=== PATIENT | female | born 1950 | race Hispanic/Latino ===

== ENCOUNTER 2017-03-02 12:04 | Observation (INO) | payer BC ==
[2017-03-02 12:11] VITALS: BMI 29.7
[2017-03-02] MEDS ORDERED: Sodium Chloride 0.9% 1,000 ML IV SCH ×2 (13:00→20:30)
--- NOTE | 2017-03-02 13:07 | ED PDOC ---
Arrival/HPI - General Chief Complaint: Dizziness/Lightheaded Time Seen by Provider: 03/02/17 12:05 Historian: Patient, Other (Significant other) - History of Present Illness Narrative History of Present Illness (Text): 03/02/17 Patient is a 66 year old female whose past medical history includes pancreatic cancer with metastases to the liver, on chemo since July 2016, last chemo last , and neuropathy who presents to the emergency department with possible syncopal episode this morning. Patient states she was at a mass where it was very wine maker the room. Patient's significant other states they had been sitting for about 10 minutes and were getting ready to leave but when he asked if she was ready to go, she said she "could not get up." Patient states she felt generally weak, sweaty, and clammy. Significant other states she did not look well and believes she may have "passed out completely for a few seconds", after which he called the ambulance. He states she did not fall or hit her head and was able to lie down with some assistance. Currently patient states she is feeling better and is able to provide the history without difficulty. Denies headache, neck pain, or back pain. Patient explains she switched chemo a few weeks ago and is being treated in [place], [place], getting scans every 2 months, with last scan in December. She explains she has not been feeling well since the new chemotherapy. This week she reports she has felt tired. Patient reports she has abdominal pain that is usually intermittent but has recently become more constant. Patient states she has not been sick the last few days. She reports normal bowel movements. No diarrhea. Today she states she ate normally and had her usual enzyme before eating. She states her pain was not more severe than her usual pain. Patient reports she did feel wobbly today before the episode. Denies shortness of breath or chest pain. PMD: Dr. Rawls Oncologist: Dr. Erika Page ([phone]) Time/Duration: Prior to Arrival Symptom Onset: Sudden Symptom Course: Resolved Activities at Onset: Rest Past Medical History - Provider Review Nursing Documentation Reviewed: Yes - Infectious Disease Hx of Infectious Diseases: None - Cardiac Hx Cardiac Disorders: Yes Hx Hypertension: Yes - Pulmonary Hx Respiratory Disorders: Yes Hx Asthma: Yes Hx Lung Cancer: Yes - Neurological Hx Neurological Disorder: No - HEENT Hx HEENT Disorder: No - Renal Hx Renal Disorder: No - Endocrine/Metabolic Hx Endocrine Disorders: No - Hematological/Oncological Hx Blood Disorders: Yes Hx Cancer: Yes (lung, pancreas, liver) Hx Chemotherapy: Yes - Integumentary Hx Dermatological Disorder: No - Musculoskeletal/Rheumatological Hx Musculoskeletal Disorders: No - Gastrointestinal Hx Gastrointestinal Disorders: No - Genitourinary/Gynecological Hx Genitourinary Disorders: No - Psychiatric Hx Psychophysiologic Disorder: No Hx Anxiety: No Hx Bipolar Disorder: No Hx Depression: No Hx Emotional Abuse: No Hx Hallucinations: No Hx Panic Disorder: No Hx Post Traumatic Stress Disorder: No Hx Psychosis: No Hx Physical Abuse: No Hx Schizophrenia: No Hx Sexual Abuse: No Hx Substance Use: No - Anesthesia Hx Anesthesia: No Hx Anesthesia Reactions: No Hx Malignant Hyperthermia: No Family/Social History - Physician Review Nursing Documentation Reviewed: Yes Family/Social History: Unknown Family HX Smoking Status: Never Smoked Hx Alcohol Use: No Hx Substance Use: No Allergies/Home Meds Allergies/Adverse Reactions: Allergies adhesive Allergy (Verified 03/02/17 12:11) RASH Home Medications: Home Meds Medication Instructions Recorded Confirmed Lipase/Protease/Amylase [Benji De Souza 1 cap PO BID 03/02/17 03/02/17 25,000 Units Capsule] Lipase/Protease/Amylase [Benji De Souza 2 cap PO WM 03/02/17 03/02/17 25,000 Units Capsule] Omeprazole Magnesium [Prilosec Otc] 40 mg PO DAILY 03/02/17 03/02/17 Review of Systems - Review of Systems Constitutional: Fatigue Eyes: absent: Vision Changes ENT: absent: Hearing Changes Respiratory: absent: SOB, Cough Cardiovascular: Syncope. absent: Chest Pain Gastrointestinal: Abdominal Pain. absent: Diarrhea, Nausea, Vomiting Musculoskeletal: absent: Back Pain, Neck Pain Skin: absent: Rash Neurological: absent: Headache, Focal Weakness Endocrine: Diaphoresis Psychiatric: absent: Depression Physical Exam - Physical Exam Narrative Physical Exam (Text): Head: Atraumatic. Normocephalic. Eyes: PERRL. EOMI. Conjunctivae are not pale. ENT: Mucous membranes are moist and intact. Oropharynx is clear and symmetric. Neck: Supple. Full ROM. No JVD. No lymphadenopathy. Cardiovascular: Regular rate. Regular rhythm. Systolic murmur. Distal pulses intact. Pulmonary/Chest: No evidence of respiratory distress. Clear to auscultation bilaterally. No wheezing, rales or rhonchi. Abdominal: Distended, mild diffuse tenderness more localized to right quadrants. Back: No CVA tenderness. No midline tenderness. Extremities: No edema. No cyanosis. No clubbing. Full range of motion in all extremities. No calf tenderness. Skin: Skin is warm and dry. No petechiae. No purpura. Neurological: Alert, awake, and oriented to person, place, time, and situation. Normal speech. Fine resting tremor. No facial droop. No pronator drift. No focal weakness. No meningeal signs. Psychiatric: Good eye contact. Normal interaction, affect, and behavior. 03/02/17 15:28 Vital Signs Reviewed: Yes Vital Signs Temp Pulse Resp BP Pulse Ox 03/02/17 17:43 93 H 16 146/83 100 03/02/17 14:52 92 H 16 142/81 100 03/02/17 12:20 98.2 F 100 H 16 134/86 98 Temperature: Afebrile Blood Pressure: Normal Pulse: Regular Respiratory Rate: Normal Appearance: Positive for: Non-Toxic Mental Status: Positive for: Alert and Oriented X 3 Medical Decision Making ED Course and Treatment: Differential Diagnosis included but are not limited to: Plan: Will obtain CT's of the Head and Abdomen/Pelvis and check labs. Progress Notes: Patient evaluated by Dr. Rawls in the ER who accepts for admission Patient evaluated by Dr. Chris Pfeiffer EXAM: CT Abdomen and Pelvis With Intravenous Contrast FINDINGS: Limitations: Prominent motion artifact is present. Lower thorax: Significant respiratory blurring in the lungs. No consolidative disease is present. Too numerous to count pulmonary metastatic nodular lesions are present ranging from 3 mm to 3 cm. Moderate right hilar adenopathy measuring 3 cm. Central line tip is seen within the superior aspect of the right atrium. ABDOMEN: Liver: Extensive low density masses throughout the liver. Largest in the left lobe measures approximately 3 x 5 cm. The largest in the right lobe measures approximately 5 x 7 cm. Gallbladder and bile ducts: No calcified stones. No ductal dilation. Pancreas: Significant complex cystic mass with some thin mural calcifications within septations in the head and uncinate region of the pancreas. There is subsequent significant dilatation of the main pancreatic duct in the body and tail of the pancreas measuring up to 10 mm. Significant pancreatic parenchymal atrophy is noted. A portion of this surrounds and obscures the fat planes of the proximal superior mesenteric artery. Kidneys and ureters: The kidneys are normal in size and density. Small renal cortical cysts are present. No stones identified. No mass. Stomach and bowel: No mass. No obstruction. No mural thickening. No acute diverticular disease. Appendix: No findings to suggest acute appendicitis. PELVIS: Reproductive: Uterus and adnexal structures appear normal for the patient's age. ABDOMEN and PELVIS: Intraperitoneal space: No free air. No significant fluid collection. Lymph nodes: Mildly enlarged interaortocaval retroperitoneal adenopathy, image 314 series 6 measuring 13 mm. IMPRESSION: Cystic pancreatic neoplasm predominantly in the head and uncinate region of the pancreas obscuring the fat plane around approximately 75% of the proximal SMA. Associated biliary end pancreatic duct obstruction. Diffuse hepatic and pulmonary metastasis. Evidence of right hilar and some retroperitoneal and periceliac adenopathy. Dictated and Authenticated by: Farhat Levi MD 03/02/2017 6:39 PM Eastern Time ([place] & [place]) - Lab Interpretations Lab Results: 03/02/17 13:30 03/02/17 13:30 Lab Results 03/02/17 13:30: Sodium 133, Potassium 4.3, Chloride 99, Carbon Dioxide 31, Anion Gap 7 L, BUN 13, Creatinine 0.6, Est GFR ( Amer) > 60, Est GFR (Non -Af Amer) > 60, Random Glucose 176 H, Calcium 10.7 H, Magnesium 2.6 H, Total Bilirubin 1.2, AST 178 H, ALT 510 H, Alkaline Phosphatase 379 H, Lactate Dehydrogenase 975 H, Total Creatine Kinase 39, Troponin I 0.02 D, NT-Pro-B Natriuret Pep 246, Total Protein 7.3, Albumin 3.7, Globulin 3.5, Albumin/ Globulin Ratio 1.1, Amylase 53, Lipase < 10 L 03/02/17 13:30: PT 13.1 H, INR 1.21 H, APTT 24.1 03/02/17 13:30: WBC 10.2, RBC 3.85, Hgb 11.0 L, Hct 33.8 L, MCV 87.8, MCH 28.6, MCHC 32.5, RDW 15.0 H, Plt Count 119 L, MPV 10.3, Gran % 84.9 H, Lymph % (Auto) 7.3 L, Cedar % (Auto) 3.9, Eos % (Auto) 0.3 L, Baso % (Auto) 3.6 H, Gran # 8.68 H , Lymph # 0.8 L, Cedar # 0.4, Eos # 0.0, Baso # 0.37 - RAD Interpretation Radiology Orders: 03/02/17 12:49 CHEST PORTABLE [RAD] Stat 03/02/17 12:50 HEAD W/O CONTRAST [CT] Stat - Medication Orders Current Medication Orders: Home Med (Home Med) 2 unit PO WM DENISA Sodium Chloride (Sodium Chloride 0.9%) 1,000 mls @ 60 mls/hr IV .[id number] DENISA Last Admin: 03/02/17 20:45 Dose: 60 mls/hr Discontinued Medications Sodium Chloride (Sodium Chloride 0.9%) 1,000 mls @ 100 mls/hr IV .Q10H DENISA Last Admin: 03/02/17 14:05 Dose: 100 mls/hr Iohexol (Omnipaque 240 (50 Ml)) Confirm Administered Dose 50 ml .ROUTE .STK-MED ONE Stop: 03/02/17 14:08 Iohexol (Omnipaque 350 100 Ml) Confirm Administered Dose 350 mg .ROUTE .STK-MED ONE Stop: 03/02/17 15:37 Ondansetron HCl (Zofran Inj) 4 mg IVP ONCE ONE Stop: 03/02/17 17:55 Last Admin: 03/02/17 18:13 Dose: 4 mg - Burtonibe Statement The provider has reviewed the documentation as recorded by the Nain Marie Provider Scribe Attestation: All medical record entries made by the Nain were at my direction and personally dictated by me. I have reviewed the chart and agree that the record accurately reflects my personal performance of the history, physical exam, medical decision making, and the department course for this patient. I have also personally directed, reviewed, and agree with the discharge instructions and disposition. Disposition/Present on Arrival - Present on Arrival History of DVT/PE: No History of Uncontrolled Diabetes: No Urinary Catheter: No History of Decub. Ulcer: No History Surgical Site Infection Following: None - Disposition Disposition: HOSPITALIZED
--- NOTE | 2017-03-02 13:41 | RAD ---
HISTORY: Syncope, pancreatic, lung, and liver cancer COMPARISON: Chest x-ray performed 10/24/15 TECHNIQUE: Chest, one view. FINDINGS: Right-sided MediPort extends to the the cavoatrial junction. Examination limited by habitus. LUNGS: Innumerable pulmonary nodules throughout both lobes with lower lobe predominance. This is new since prior study. Please note that chest x-ray has limited sensitivity for the detection of pulmonary masses. PLEURA: No significant pleural effusion identified. No definite pneumothorax . CARDIOVASCULAR: The heart size appears within normal limits. Atherosclerotic calcification of the aortic knob. OSSEOUS STRUCTURES: No acute osseous abnormality identified. VISUALIZED UPPER ABDOMEN: Unremarkable. OTHER FINDINGS: None. IMPRESSION: Right-sided MediPort extends the cavoatrial junction. Innumerable pulmonary nodules with lower lobe predominance, new since prior available chest x-ray. Findings are consistent with metastatic disease. Correlate clinically. Findings discussed with VAL Arana on 03/02/17 137pm
[2017-03-02 13:45] LABS: ADD MANUAL DIFF? NO
[2017-03-02 13:50] LABS: BASO # 0.37 K/mm3 (0.0-2.0); BASO % 3.6 % (0.0-3.0); EOS % 0.3 % (1.5-5.0); GRAN # 8.68 (1.4-6.5); GRAN % 84.9 % (50.0-68.0); HEMATOCRIT 33.8 % (36.0-48.0); LYMPH # 0.8 (1.2-3.4); LYMPH % 7.3 % (22.0-35.0); MEAN CELL VOLUME 87.8 fL (80.0-105.0); MEAN CORPUSCULAR HEMOGLOBIN 28.6 pg (25.0-35.0); MEAN CORPUSCULAR HGB CONC 32.5 g/dl (31.0-37.0); MEAN PLATELET VOLUME 10.3 fl (7.0-11.0); MONO # 0.4 (0.1-0.6); MONO % 3.9 % (1.0-6.0); PLATELET COUNT 119 10^3/uL (120.0-450.0); WHITE BLOOD COUNT 10.2 10^3/ul (4.5-11.0)
[2017-03-02 13:58] LABS: INR 1.21 (0.93-1.08); PARTIAL THROMBOPLASTIN TIME 24.1 Seconds (23.7-30.8)
[2017-03-02 14:00] LABS: ALB/GLOB RATIO 1.1 (1.1-1.8); ALKALINE PHOSPHATASE 379 U/L (38-133); AMYLASE 53 U/L (35-125); AST/SGOT 178 U/L (15-39); BILIRUBIN,TOTAL 1.2 mg/dL (0.2-1.3); BLOOD UREA NITROGEN 13 mg/dL (7-21); CALCIUM 10.7 mg/dL (8.4-10.5); CARBON DIOXIDE 31 mmol/L (21-33); CHLORIDE 99 mmol/L (98-107); GFR AFRICAN-AMERICAN > 60; GLUCOSE,RANDOM 176 mg/dL (70-110); MAGNESIUM 2.6 mg/dL (1.7-2.2); POTASSIUM 4.3 mmol/L (3.6-5.0); SODIUM 133 mmol/L (132-148); TOTAL PROTEIN 7.3 g/dL (5.8-8.3)
[2017-03-02] MEDS ORDERED: Iohexol 240 (50 ml) ONE (14:07)
[2017-03-02 14:10] LABS: LIPASE < 10 U/L (23-300); TROPONIN I 0.02 ng/mL
[2017-03-02 14:13] LABS: PH,URINE 5.5 (4.7-8.0); URINE BILIRUBIN MODERATE (NEGATIVE); URINE BLOOD NEGATIVE (NEGATIVE); URINE GLUCOSE (UA) NEGATIVE (NEGATIVE); URINE KETONE TRACE mg/dL (NEGATIVE); URINE LEUKOCYTE ESTERASE NEGATIVE Leu/uL (NEGATIVE); URINE PROTEIN 100 mg/dL (<30 mg/dL)
[2017-03-02 14:14] LABS: URINE APPEARANCE CLEAR (CLEAR); URINE COLOR DARK YELLOW (YELLOW)
[2017-03-02 14:29] LABS: URINE EPITHELIAL CELLS 0 - 2 /hpf (0-5); URINE RBC NEGATIVE /hpf (0-2)
[2017-03-02 14:30] LABS: URINE BACTERIA SMALL (NEG)
--- NOTE | 2017-03-02 15:02 | CON ---
DATE: 03/02/2017 CHIEF COMPLAINT: Near syncope. HISTORY OF PRESENT ILLNESS: This is a 66-year-old woman with past medical history of pancreatic canc er, metastasis to the liver, on chemotherapy since 07/2016. Her last chemotherapy was last . She has peripheral neuropathy from underlying malignancy, was at a mass. It was enclosed a nd very hot and warm where she was diaphoretic and almost nearly passed out. She felt her skin was c lammy and hot and could not stand and had difficulty getting up from a sitting to a standing position at that particular time after which, she had completely passed out for a few seconds, returned back to baseline. She came to the hospital for further evaluation. She did not hit her head. No headach es. No change in sense of vision, taste or smell at this time. She has chronic muscular pain from u nderlying malignancy. Currently, no focal neurological deficits at this time on examinations except for mild evidence of peripheral neuropathy and mild deconditioned. CAT scan of the head was not done now. We will order one. Her sodium and potassium are normal. There is no aphasia noted. PAST MEDICAL HISTORY: History of pancreatic cancer, metastasis to the liver, on chemotherapy since , history of peripheral neuropathy secondary to malignancy, history of deconditioned state from un derlying malignancy. REVIEW OF SYSTEMS: A 14-point review of systems is negative except for the HPI. MEDICATIONS: Reviewed via nurse's reconciliation sheet. ALLERGIES: ALLERGIC TO ADHESIVE TAPE. FAMILY HISTORY: Noncontributory. SOCIAL HISTORY: No illicit drug use, smoking, or ETOH use at this time. PHYSICAL EXAMINATION: VITAL SIGNS: Temperature 98, pulse rate of 100, blood pressure 134/86, respiratory rate of 16, oxyge n saturation 98% via room air. GENERAL: The patient is sitting up in bed in no acute distress. HEENT: Atraumatic, normocephalic. PERRLA. Extraocular muscles are intact. NECK: Supple, no JVD, no adenopathy noted. LUNGS: Clear to auscultation. No adventitious sounds. HEART: Slight tachycardia, but otherwise S1, S2, normal rate and rhythm. No murmurs, rubs, or gamboa ps. ABDOMEN: Soft, nontender, nondistended. Bowel sounds present. EXTREMITIES: No clubbing, no cyanosis. Peripheral pulses 2+ felt bilaterally. NEUROLOGIC: The patient is alert, oriented to person, place, month and year. Speech is fluent witho ut any errors. Cranial nerves II-XII are intact. MOTOR: Moves all extremities equally. Toes downgoing bilaterally. SENSORY: Decreased light touch and pinprick up to the calves bilaterally. Decreased vibration of th e toes. DTRs 2+ throughout and 1 at the ankles. COORDINATION: [id number] intact. Gait is deferred for now. LABORATORY DATA: Sodium is 133, potassium 4.3, chloride of 99, carbon dioxide 31, BUN of 13, creatin ine of 0.6, random glucose of 176. ASSESSMENT AND PLAN: This is a 66-year-old woman with history of pancreatic cancer, metastasis to th e liver, on chemotherapy since 2015, history of peripheral neuropathy secondary to malignancy, histo ry deconditioned state from underlying cancer, who presents with a syncopal episode while she was in [place] which was hot and felt lightheaded and cold and clammy and therefore passed out for a few seco nds. No seizure-like activity. No history of seizures. No focal neurological deficits on examinati on except for mild peripheral neuropathy from underlying malignancy. At this time, her syncopal even t was most likely a vasovagal event from poor intake of fluids as well as due to overheating of the r oom. At this time, recommend: 1. CAT scan of the head just to check her baseline. 2. Hydrate the patient. 3. Monitor her electrolytes and correct accordingly. She is clinically stable from a neurological s tandpoint. We will defer rest of her course to primary care and oncology. Thank you for this consult. Chris Pfeiffer MD cc: [id number] TT: 03/02/2017 15:02:09 Confirmation # [id number] Dictation # [id number] tn
[2017-03-02 15:21] LABS: ALT/SGPT 510 U/L (7-56)
[2017-03-02] MEDS ORDERED: Iohexol 350 MG/100 ML VIAL ONE (15:36)
--- NOTE | 2017-03-02 15:45 | CARD ---
APPROVED REPORT EKG Measurement Heart [id number] <Conclusion> Normal sinus rhythm Normal ECG
--- NOTE | 2017-03-02 17:21 | CT ---
PROCEDURE: CT HEAD WITHOUT CONTRAST. HISTORY: syncope COMPARISON: None available. TECHNIQUE: Axial computed tomography images were obtained through the head/brain without intravenous contrast. Radiation dose: Total exam DLP = None available. This CT exam was performed using one or more of the following dose reduction techniques: Automated exposure control, adjustment of the mA and/or kV according to patient size, and/or use of iterative reconstruction technique. FINDINGS: HEMORRHAGE: No intracranial hemorrhage. BRAIN: No mass effect or edema. The lora-white matter differentiation appears intact. Please note that MRI with diffusion imaging is more sensitive in the detection of acute ischemic event. VENTRICLES: No hydrocephalus. CALVARIUM: Unremarkable. PARANASAL SINUSES: No visible fluid levels. Partial high density within the inferior maxillary sinus. Mucosal thickening/ polyp within the right sphenoid sinus. MASTOID AIR CELLS: Unremarkable as visualized. No inflammatory changes. OTHER FINDINGS: None. IMPRESSION: No acute intracranial pathology identified. Additional findings as above.
--- NOTE | 2017-03-02 22:13 | HP ---
HISTORY OF PRESENT ILLNESS: A 66-year-old female was brought to [facility] by ambulance. She was attending a mass in religious where she felt weak and passed out according to a friend next to her for a brief period of time. It was printed circuit layout taper the religious and she felt clammy and hot, could not st and and had difficulty getting up from a sitting to a standing position at that particular time. The re is no loss of bowel or bladder function. The patient is receiving chemotherapy for metastatic pancreatic cancer to liver and lung, and since 10/05/2015, the last chemotherapy was last . She has a peripheral neuropathy from underlying malignancy. PAST MEDICAL HISTORY: She has a past medical history of hypertension, metastatic pancreatic cancer, peripheral neuropathy. ALLERGIES: ADHESIVE TAPE. REVIEW OF SYSTEMS: Fourteen systems are reviewed. Pertinent findings as stated above. PHYSICAL EXAMINATION: Noncontributory. SOCIAL HISTORY: She is a nondrinker, nondrug user normal. PHYSICAL EXAMINATION: VITAL SIGNS: Her temperature is 98, her pulse is 100, her blood pressure is 134/86, respiratory rate is 16, oxygen saturation on room air is 98%. NEUROLOGIC: She is alert and oriented x 3. NECK: Supple. LUNGS: Clear. HEART: S1, S2 rhythm with mild tachycardia. ABDOMEN: Soft with positive bowel sounds. EXTREMITIES: No evidence of edema. There peripheral pulses present. NEUROLOGIC: She is moving all extremities. Toes are downgoing. Gait is deferred. LABORATORY DATA: Shows a WBC of 10.2, RBC 3.85, hemoglobin 11, hematocrit 33.8, platelet count 119. Her PT is 13.1 with an INR 1.21, PTT is 24.1. Chemistry shows sodium 133, potassium 4.3, chloride 9 9, BUN is 13, creatinine is 0.6. Random blood sugar is 176. Her calcium is 10.7 and magnesium is 2. 6, AST is 178, ALT is 510 and alkaline phosphatase 379, LDH is 975. She has a lipase that is less th an 10. Her amylase is normal at 53. BMP is normal at 246 and the troponin is 0.02. The electrocard iogram is reported as showing a normal sinus rhythm. PLAN: The patient will undergo a CT of the head. She has been having some intermittent abdominal pa in in the periumbilical area. A CT of the abdomen and pelvis will be performed. The Emergency Room physician spoke with oncology attending covering for her primary oncology attending and states that t amory are aware of the metastatic disease to the liver and the lung and not aware of any neurological i ssues, other than a peripheral neuropathy secondary to her chemotherapy. The patient states that her actual home meds are Prilosec and compound to replace the enzymes that would normally be repro duced by the pancreas. We will request a GI and neurological consult. The patient will be admitted to telemetry. We will get the results of the CT studies and further treatment plan and management pe nding those findings and input from the individual consultants and her oncology attending. Angela Rawls MD cc: [id number] TT: 03/02/2017 22:11:48 mn
--- NOTE | 2017-03-03 01:58 | CON ---
DATE: 03/02/2017 REASON FOR CONSULTATION: Right-sided abdominal pain, pancreatic cancer. HISTORY OF PRESENT ILLNESS: This is a pleasant 66-year-old patient with metastatic pancreatic cancer , being followed at [facility]. She is on a new protocol regimen, chemo regim en. With of the chemoradiation followed by at home continuation. The patient was in the [facility] attending. The patient had a near syncopal event while he was in [place] today. She was brought to the Emergency Room. PAST MEDICAL HISTORY: Other past medical history is significant as above, hypertension, peripheral n europathy. ALLERGIES: ADHESIVE TAPE. REVIEW OF SYSTEMS: Positive as above. SOCIAL HISTORY: Denies smoking or alcohol. REVIEW OF SYSTEMS: GENERAL: The patient is lying on the bed, not in acute distress. VITAL SIGNS: Temperature is 98.2, pulse 92, respirations 16, O2 saturation 100% room, blood pressure 142/81. HEENT: Atraumatic, anicteric. NECK: Supple. HEART: S1, S2 heard. LUNGS: Bilateral air entry present. ABDOMEN: Soft. There is tenderness, mild tenderness present in the right side of the abdomen on deep palpation. LABORATORY DATA: Urinalysis is positive nitrite. WBC is . IMPRESSION: Right sided abdominal pain in a patient with pancreatic cancer, near syncopal episode. The patient had a CT done recently, today, and the official report is pending. We will review the CT , request urine culture to be done. We will continue the PPI. Thank you very much for allowing me to participate in the care of the patient. Maame Lloyd MD cc: [id number] TT: 03/03/2017 01:57:47 Confirmation # [id number] Dictation # [id number] mn
[2017-03-03 06:55] LABS: ADD MANUAL DIFF? NO
[2017-03-03 07:11] LABS: ALB/GLOB RATIO 1.1 (1.1-1.8); ALKALINE PHOSPHATASE 395 U/L (38-133); AST/SGOT 174 U/L (15-39); BILIRUBIN,TOTAL 1.3 mg/dL (0.2-1.3); BLOOD UREA NITROGEN 9 mg/dL (7-21); CARBON DIOXIDE 34 mmol/L (21-33); CHLORIDE 100 mmol/L (98-107); GFR AFRICAN-AMERICAN > 60; GLUCOSE,RANDOM 125 mg/dL (70-110); POTASSIUM 4.4 mmol/L (3.6-5.0); SODIUM 134 mmol/L (132-148); TOTAL PROTEIN 7.1 g/dL (5.8-8.3)
[2017-03-03 07:16] LABS: BASO # 0.45 K/mm3 (0.0-2.0); BASO % 5.8 % (0.0-3.0); EOS % 0.4 % (1.5-5.0); GRAN # 5.68 (1.4-6.5); GRAN % 73.6 % (50.0-68.0); HEMATOCRIT 33.9 % (36.0-48.0); LYMPH # 1.1 (1.2-3.4); LYMPH % 14.2 % (22.0-35.0); MEAN CELL VOLUME 87.6 fL (80.0-105.0); MEAN CORPUSCULAR HEMOGLOBIN 28.7 pg (25.0-35.0); MEAN CORPUSCULAR HGB CONC 32.7 g/dl (31.0-37.0); MEAN PLATELET VOLUME 9.4 fl (7.0-11.0); MONO # 0.5 (0.1-0.6); PLATELET COUNT 119 10^3/uL (120.0-450.0); RED CELL DISTRIBUTION WIDTH 15.3 % (11.5-14.5); WHITE BLOOD COUNT 7.7 10^3/ul (4.5-11.0)
[2017-03-03 07:46] LABS: ALT/SGPT 207 U/L (7-56)
[2017-03-03] MEDS ORDERED: OMEPRAZOLE 40 MG PO SCH (10:45)
--- NOTE | 2017-03-03 10:58 | CT ---
PROCEDURE: CT Abdomen and Pelvis with oral and IV contrast. HISTORY: abdominal pain, hx of metastatic pancreatic ca COMPARISON: Chest x-ray performed 03/02/17 TECHNIQUE: Contiguous axial images of the abdomen and pelvis. Oral and IV contrast was administered. Coronal and Sagittal reformats generated and reviewed. Contrast dose: 100 mL Omnipaque 300 Radiation dose: Total exam DLP = 1664.98 mGy-cm. This CT exam was performed using one or more of the following dose reduction techniques: Automated exposure control, adjustment of the mA and/or kV according to patient size, and/or use of iterative reconstruction technique. FINDINGS: LOWER THORAX: Innumerable lower lobe pulmonary nodules and masses ranging from 3 mm to 3 cm. Partially imaged right hilar adenopathy measuring up to 3 cm. Distal tip of central line is noted at the level the right atrium. No visible pleural effusion or pneumothorax. LIVER: Extensive low-density lesions evident throughout the liver consistent with metastatic disease. Largest lesion in the left hepatic lobe measures approximately 3 x 5 cm. Largest lesion in the right hepatic lobe measures approximately 5 x 7 cm. GALLBLADDER AND BILE DUCTS: Decompressed gallbladder precludes adequate evaluation. PANCREAS: Complex cystic appearing mass containing thin mural calcifications as well as septations evident at the level the head/uncinate portions of the pancreas. This abnormality surrounds obscures fat planes of the proximal superior mesenteric artery. Significant dilatation of the main pancreatic duct within the body and tail of the pancreas measuring up to 10 mm. Significant pancreatic atrophy evident. SPLEEN: Unremarkable. ADRENALS: Mild left adrenal gland hypertrophy. Unremarkable appearance of the right adrenal gland. KIDNEYS AND URETERS: The kidneys enhance symmetrically. No hydronephrosis or obstructing renal calculus. Too small to characterize probable left renal cysts. BLADDER: The urinary bladder appears unremarkable. REPRODUCTIVE: Uterus is present. APPENDIX: No secondary signs of acute appendicitis. BOWEL: The stomach is nondistended. The bowel loops appear within normal limits of caliber without evidence of intestinal obstruction. PERITONEUM: No significant free fluid. No definite free air. LYMPH NODES: Prominent sub cm mesenteric lymph nodes. Enlarged retroperitoneal adenopathy measuring approximately 13 mm. VASCULATURE: No aortic aneurysm. BONES: Mild degenerative changes. OTHER FINDINGS: None. IMPRESSION: Cystic pancreatic neoplasm predominantly involving the head/uncinate region of the pancreas obscuring the fat plane surrounding approximately 75 percent of the proximal SMA. Associated biliary and pancreatic duct obstruction. Diffuse hepatic and pulmonary metastases. Evidence of right hilar as well as retroperitoneal and periceliac adenopathy. Additional findings as above. Preliminary impression was provided by virtual radiologic.
[2017-03-03] MEDS ORDERED: Sodium Chloride 0.9% 1,000 ML IV SCH (11:54)
[2017-03-03] MEDS: Pantoprazole 40 mg EC Tab PO SCH (12:06)
--- NOTE | 2017-03-03 16:00 | PN ---
DATE: 03/03/2017 A 66-year-old female sitting comfortably in bed this morning. Nursing staff relates that the patient vomited this morning after breakfast. The patient states that she is not having any symptoms at thi s time. PHYSICAL EXAMINATION: VITAL SIGNS: Her temp is 98.2, her pulse is 89 and regular, her blood pressure is 129/72, oxygen sat uration is 94% on room air. GENERAL: She is alert and oriented x 3. NECK: Supple, no JVD. LUNGS: Clear. HEART: S1, S2 rhythm. There is a Port-A-Cath line in place. ABDOMEN: Soft with positive bowel sounds. EXTREMITIES: No evidence of edema. LABORATORY DATA: Shows a sodium 134, potassium 4.4, chloride 100, CO2 is 34. The BUN is 9, creatini ne is 0.6. Her AST is 174, ALT is 207, and alkaline phosphatase 395. LDH is 975. CBC shows a WBC o f 7.7, RBC 3.87, hemoglobin 11, hematocrit 33.9, platelet count 119. Urinalysis shows small bacteria . Urine culture is pending. The patient's CAT scan of the abdomen and pelvis has been reviewed. Wi ll discuss with GI. There is no prior CAT scan here to compare with. The patient is being treated f or metastatic pancreatic cancer. She had a syncopal episode while in [place]. A CAT scan of her head was negative. Electrocardiogram was showing normal sinus rhythm. Given the fact that the patient was not able to tolerate a soft diet this morning, we will resume liq uids, review with GI and observe the patient. We will request the parathyroid hormone because of the elevated calcium and increase the IV fluid hydration, although concern is for the elevation in the c alcium to be secondary to the metastatic disease. I will continue the current level of care. Clinic al findings have been discussed with the patient and with systems security consultant. Angela Rawls MD cc: [id number] TT: 03/03/2017 16:00:08 Confirmation # [id number] Dictation # [id number] warren
--- NOTE | 2017-03-03 16:40 | PN ---
DATE: 03/03/2017 SUBJECTIVE: This patient was seen and evaluated earlier. Discussed with Dr. Rawls. The patient di d have a clear liquid diet and diet was advanced to soft diet in a.m. The patient did throw up. Now presently comfortable. PHYSICAL EXAMINATION: VITAL SIGNS: Temperature is 98.2, pulse 90, blood pressure 129/72. HEENT: Atraumatic, anicteric. NECK: Supple. HEART: S1, S2 heard. LUNGS: Bilateral air entry present. ABDOMEN: Soft. There is no tenderness. LABORATORY DATA: Hemoglobin 11.1, hematocrit 33.9, WBC 7.7, platelets 119. Chemistry shows total bi lirubin is 1.3, AST 174, ALT 207, alkaline phosphatase 395, BUN is 34, creatinine is 0.4. The patien t's calcium is slightly on the high side. It was 10.7 yesterday, now it is 11. CT scan of the abdomen and pelvis was reviewed. IMPRESSION: This is a 66-year-old patient with metastatic pancreatic cancer, admitted following a sy ncopal episode. The patient did have complaints of some discomfort in the right side abdominal area. The patient has been put on IV hydration, feeling much better. Had an episode of vomiting this mor katherin which subsided. The patient did have significantly elevated liver function tests. There is sig nificant dilation of the bile duct and pancreatic duct noticed. Would recommend at this point to adv ance the diet slowly again. The patient would benefit from soft food, chewed well, or a pureed diet if he has no further episodes The patient has an appointment to see the manager of global on Saturday. Will make copies of the CD for her to follow up there. History of hypercalcemia. Increase IV fluid and followup of the calcium level. If significantly elevated, will get renal to evaluate it. Discus sed with Dr. Rawls. Thank you very much for allowing us to participate in the care of the patient. Maame Lloyd MD cc: [id number] TT: 03/03/2017 16:40:42 Confirmation # [id number] Dictation # [id number] mikal
--- NOTE | 2017-03-03 19:32 | CP.PCM.CON ---
History of Present Illness - History of Present Illness History of Present Illness: 66 year old female w/ a hx of met pancreatic cancer that presented to ER w/ presyncpal episode. She was apparently at a and the room was hot and she felt very weak and sweaty. Its not clear if she passed out. She presented to ER w/ some naussea and vomitting and hypercalcemia which apparently is new. She has been getting chemo for her pancreatic ca. It does not appear that there are bony mets. ROS: a full detailed ROS is negative except as above Past Patient History - Infectious Disease Hx of Infectious Diseases: None - Past Medical History & Family History Past Medical History?: No Pertinent Family History: no esrd - Past Social History Smoking Status: Never Smoked Alcohol: None Drugs: Denies - CARDIAC Hx Cardiac Disorders: Yes Hx Hypertension: Yes - PULMONARY Hx Respiratory Disorders: Yes Hx Asthma: Yes Hx Lung Cancer: Yes - NEUROLOGICAL Hx Neurological Disorder: No - HEENT Hx HEENT Problems: No - RENAL Hx Chronic Kidney Disease: No - ENDOCRINE/METABOLIC Hx Endocrine Disorders: No - HEMATOLOGICAL/ONCOLOGICAL Hx Blood Disorders: Yes Hx Cancer: Yes (metastatic pancreatic cancer) Hx Chemotherapy: Yes - INTEGUMENTARY Hx Dermatological Problems: No - MUSCULOSKELETAL/RHEUMATOLOGICAL Hx Musculoskeletal Disorders: No - GASTROINTESTINAL Hx Gastrointestinal Disorders: No - GENITOURINARY/GYNECOLOGICAL Hx Genitourinary Disorders: No - PSYCHIATRIC Hx Psychophysiologic Disorder: No Hx Anxiety: No Hx Bipolar Disorder: No Hx Depression: No Hx Emotional Abuse: No Hx Hallucinations: No Hx Panic Symptoms: No Hx Post Traumatic Stress Disorder: No Hx Psychosis: No Hx Physical Abuse: No Hx Schizophrenia: No Hx Sexual Abuse: No Hx Substance Use: No - SURGICAL HISTORY Hx Surgeries: Yes (rcw pac) - ANESTHESIA Hx Anesthesia: No Hx Anesthesia Reactions: No Hx Malignant Hyperthermia: No Meds Allergies/Adverse Reactions: Allergies Allergy/AdvReac Type Severity Reaction Status Date / Time adhesive Allergy RASH Verified 03/02/17 12:11 - Medications Medications: Current Medications Acetaminophen (Tylenol 325mg Tab) 650 mg PO Q4H PRN PRN Reason: Headache Last Admin: 03/03/17 17:18 Dose: 650 mg Home Med (Home Med) 2 unit PO WM DENISA Last Admin: 03/03/17 17:18 Dose: Not Given Home Med (Home Med) 1 unit PO ACB DENISA Last Admin: 03/03/17 13:27 Dose: Not Given Sodium Chloride (Sodium Chloride 0.9%) 1,000 mls @ 100 mls/hr IV .Q10H [facility] Last Admin: 03/03/17 14:14 Dose: 100 mls/hr Ondansetron HCl (Zofran Inj) 4 mg IVP Q6H PRN PRN Reason: Nausea/Vomiting Last Admin: 03/03/17 09:29 Dose: 4 mg Pantoprazole Sodium (Protonix Ec Tab) 40 mg PO 0600 [facility] Last Admin: 03/03/17 12:06 Dose: 40 mg Physical Exam - Head Exam Head Exam: ATRAUMATIC - Eye Exam Eye Exam: Normal appearance - ENT Exam ENT Exam: Mucous Membranes Moist - Neck Exam Neck exam: Positive for: Normal Inspection - Respiratory Exam Respiratory Exam: NORMAL BREATHING PATTERN - Cardiovascular Exam Cardiovascular Exam: +S1, +S2 - GI/Abdominal Exam GI & Abdominal Exam: Normal Bowel Sounds - Extremities Exam Extremities exam: Positive for: normal inspection - Neurological Exam Neurological exam: Alert, Oriented x3 - Psychiatric Exam Psychiatric exam: Normal Affect - Skin Skin Exam: Normal Color Results - Vital Signs Recent Vital Signs: Last Vital Signs Temp 97.1 F L 03/03/17 17:53 Pulse 87 03/03/17 17:53 Resp 20 03/03/17 17:53 BP 142/95 H 03/03/17 17:53 Pulse Ox 94 L 03/03/17 06:00 - Labs Result Diagrams: 03/03/17 06:45 03/03/17 06:45 Labs: Laboratory Results - last 24 hr 03/03/17 03/03/17 06:45 06:45 WBC 7.7 D RBC 3.87 Hgb 11.1 L Hct 33.9 L MCV 87.6 MCH 28.7 MCHC 32.7 RDW 15.3 H Plt Count 119 L MPV 9.4 Gran % 73.6 H Lymph % (Auto) 14.2 L [place] % (Auto) 6.0 Eos % (Auto) 0.4 L Baso % (Auto) 5.8 H Gran # 5.68 Lymph # 1.1 L [place] # 0.5 Eos # 0.0 Baso # 0.45 Sodium 134 Potassium 4.4 Chloride 100 Carbon Dioxide 34 H Anion Gap 4 L BUN 9 Creatinine 0.6 Est GFR ( Amer) > 60 Est GFR (Non-Af Amer) > 60 Random Glucose 125 H Calcium 11.0 H Total Bilirubin 1.3 AST 174 H ALT 207 H Alkaline Phosphatase 395 H Total Protein 7.1 Albumin 3.6 Globulin 3.4 Albumin/Globulin Ratio 1.1 Assessment & Plan - Assessment and Plan (Free Text) Assessment: Hypercalcemia/ Pancreatic Cancer/ ANemia /presyncope plan: suspect hypercalcemia is related to malignancy. Pth sent, will order PTHrP. Will inc ivf to ns 125 cc/hr. If there is no significant improvement w/ ivf will likely need iv bisphosphonate. Pt s/p PET CT couple days ago - Dr. Rawls to discuss care w/ her primary oncologist cayla AM - will see if any bony mets. Discussed w/ Dr. Rawls Thank you for this interesting consult. Covering for Dr. Barrientos who will resume care tomorrow.
[2017-03-03] MEDS: Sodium Chloride 0.9% 1,000 ML IV SCH ×2 (19:50→23:41)
[2017-03-04] MEDS: Sodium Chloride 0.9% 1,000 ML IV SCH ×2 (03:30→06:47)
[2017-03-04] MEDS: Pantoprazole 40 mg EC Tab PO SCH (05:44)
[2017-03-04 06:14] VITALS: O2SAT 97
[2017-03-04 07:21] LABS: BLOOD UREA NITROGEN 8 mg/dL (7-21); CALCIUM 10.4 mg/dL (8.4-10.5); CARBON DIOXIDE 34 mmol/L (21-33); CHLORIDE 102 mmol/L (98-107); GFR AFRICAN-AMERICAN > 60; GLUCOSE,RANDOM 101 mg/dL (70-110); SODIUM 135 mmol/L (132-148)
--- NOTE | 2017-03-04 11:36 | CP.PCM.CON ---
History of Present Illness - History of Present Illness History of Present Illness: 66 year old female with PMH of pancreatic cancer with liver and pulmonary metastases and on chemotherapy since July 2016, HTN initially came in to [facility] because she almost fainted while she was at a [place]. Work up has not yielded a serious cause. Part of her work up in the ED included urinalysis and urine cx which are showing positive nitrites on urinalysis and multiple species of bacteria on urine culture. Infectious diseases consult is requested to further evaluate and manage. Currently the patient is comfortable, eating her breakfast, no fever or chills, no denies having dysuria, no suprapubic tenderness, no nausea or vomiting, no flank pain, no headache or dizziness, no chest pain, no sore throat, no cough or colds, no diarrhea. Review of Systems - Review of Systems All systems: reviewed and no additional remarkable complaints except (as per HPI ) Past Patient History - Infectious Disease Hx of Infectious Diseases: None - Past Medical History & Family History Past Medical History?: No - Past Social History Smoking Status: Never Smoked Alcohol: None Drugs: Denies - CARDIAC Hx Cardiac Disorders: Yes Hx Hypertension: Yes - PULMONARY Hx Respiratory Disorders: Yes Hx Asthma: Yes Hx Lung Cancer: Yes - NEUROLOGICAL Hx Neurological Disorder: No - HEENT Hx HEENT Problems: No - RENAL Hx Chronic Kidney Disease: No - ENDOCRINE/METABOLIC Hx Endocrine Disorders: No - HEMATOLOGICAL/ONCOLOGICAL Hx Blood Disorders: Yes Hx Cancer: Yes (metastatic pancreatic cancer) Hx Chemotherapy: Yes - INTEGUMENTARY Hx Dermatological Problems: No - MUSCULOSKELETAL/RHEUMATOLOGICAL Hx Musculoskeletal Disorders: No - GASTROINTESTINAL Hx Gastrointestinal Disorders: No - GENITOURINARY/GYNECOLOGICAL Hx Genitourinary Disorders: No - PSYCHIATRIC Hx Psychophysiologic Disorder: No Hx Anxiety: No Hx Bipolar Disorder: No Hx Depression: No Hx Emotional Abuse: No Hx Hallucinations: No Hx Panic Symptoms: No Hx Post Traumatic Stress Disorder: No Hx Psychosis: No Hx Physical Abuse: No Hx Schizophrenia: No Hx Sexual Abuse: No Hx Substance Use: No - SURGICAL HISTORY Hx Surgeries: Yes (rcw pac) - ANESTHESIA Hx Anesthesia: No Hx Anesthesia Reactions: No Hx Malignant Hyperthermia: No Meds Allergies/Adverse Reactions: Allergies Allergy/AdvReac Type Severity Reaction Status Date / Time adhesive Allergy RASH Verified 03/02/17 12:11 - Medications Medications: Current Medications Acetaminophen (Tylenol 325mg Tab) 650 mg PO Q4H PRN PRN Reason: Headache Last Admin: 03/03/17 17:18 Dose: 650 mg Home Med (Home Med) 2 unit PO WM [facility] Last Admin: 03/03/17 17:18 Dose: Not Given Home Med (Home Med) 1 unit PO ACB [facility] Last Admin: 03/03/17 13:27 Dose: Not Given Sodium Chloride (Sodium Chloride 0.9%) 1,000 mls @ 125 mls/hr IV .Q8H [facility] Last Admin: 03/04/17 06:47 Dose: 125 mls/hr Ondansetron HCl (Zofran Inj) 4 mg IVP Q6H PRN PRN Reason: Nausea/Vomiting Last Admin: 03/03/17 09:29 Dose: 4 mg Pantoprazole Sodium (Protonix Ec Tab) 40 mg PO 0600 [facility] Last Admin: 03/04/17 05:44 Dose: 40 mg Physical Exam - Constitutional Appears: Non-toxic, No Acute Distress - Head Exam Head Exam: NORMAL INSPECTION - ENT Exam ENT Exam: Mucous Membranes Moist - Neck Exam Neck exam: Negative for: Lymphadenopathy, Meningismus - Respiratory Exam Respiratory Exam: Decreased Breath Sounds - Cardiovascular Exam Cardiovascular Exam: +S1, +S2 - GI/Abdominal Exam GI & Abdominal Exam: Soft. absent: Tenderness Results - Vital Signs Recent Vital Signs: Last Vital Signs Temp 97.7 F 03/04/17 06:00 Pulse 88 03/04/17 06:00 Resp 18 03/04/17 06:00 BP 121/71 03/04/17 06:00 Pulse Ox 97 03/04/17 06:00 - Labs Result Diagrams: 03/03/17 06:45 03/04/17 06:45 Labs: Laboratory Results - last 24 hr 03/04/17 06:45 Sodium 135 Potassium 4.0 Chloride 102 Carbon Dioxide 34 H Anion Gap 3 L BUN 8 Creatinine 0.6 Est GFR ( Amer) > 60 Est GFR (Non-Af Amer) > 60 Random Glucose 101 Calcium 10.4 Assessment & Plan - Assessment and Plan (Free Text) Plan: Assessment Asymptomatic bacteriuria pancreatic cancer with liver and pulmonary metastases and on chemotherapy since July 2016 HTN S/P pre-syncopal episode Plan As discussed with Dr. Rawls, no antibiotics are needed currently and the patient can be observed off antibiotics as an outpatient
[2017-03-04 12:28] VITALS: BP 116/72; PULSE 87; RESP 20; TEMP 98.7
--- NOTE | 2017-03-04 13:02 | PN ---
DATE: 03/04/2017 Seen and examined at the bedside earlier today. The patient denies any nausea, vomiting, or abdomina l pain. She did have pain in the right upper quadrant before. This is much improved. She is tolera ting the clear liquid diet. No new complaints or acute overnight events. VITAL SIGNS: Temperature is 97.7, blood pressure 121/71, pulse 85, respirations 18, 97 room air. LABORATORY DATA: Sodium 135, K 4.0, BUN is 8, creatinine is 0.6. PHYSICAL EXAMINATION: HEENT: Sclerae are anicteric. NECK: Supple. CARDIAC: S1, S2. LUNGS: With decreased breath sounds at the bases, but good air entry. No rales or wheeze. ABDOMEN: With bowel sounds, soft, nontender. No rebound or guarding. ASSESSMENT: This is a 66-year-old female with metastatic pancreatic cancer, came with complaints of right-sided abdominal pain and status post syncopal episode. The patient with no further reports of vomiting. Is noted to have elevated liver enzymes and dilation in the bile duct and pancreatic duct. The patient has a followup appointment on Saturday with her oncology team. Since patient is tolerat ing her diet, would recommend to increase to a soft low residual diet. I advised patient to be disch arged with CD of her recent radiological tests done this admission as well as her labs. The patient also with hypercalcemia. Her levels have improved today. Her IV fluids were increased; she tolerate d that. Case discussed with Dr. Rawls. The patient was seen and discussed with Dr. Lloyd who is covering rounds. Stephany CARRINGTON cc: [id number] TT: 03/04/2017 13:01:15 Confirmation # [id number] Dictation # [id number] warren
--- NOTE | 2017-03-04 15:15 | PN ---
DATE: 03/04/2017 SUBJECTIVE: The patient is currently seen ambulating in the room. She is preparing to be discharged . She was admitted with near syncope and noted to be mildly hypercalcemic. She was appropriately tr eated with IV fluid hydration. She is back to baseline and would like to be discharged later today. Case was discussed with Dr. Rawls in detail. MEDICATIONS: List reviewed. The patient is currently on Zenpep, omeprazole, normal saline 125 mL an hour which will be discontinued, p.r.n. Tylenol and p.r.n. Zofran. OBJECTIVE: INTAKE AND OUTPUT: Intake 1859, output not charted. VITAL SIGNS: Blood pressure 116/72, temperature 98.7, respiratory rate is 20 with a pulse of 87. HEENT: Shows her to be normocephalic, atraumatic. Conjunctivae are pink. Sclerae are nonicteric. NECK: Supple, no neck vein distention. CHEST: Clear to auscultation and percussion. No rales, no rhonchi, no wheezing. CARDIOVASCULAR: Shows a regular rate and rhythm without murmurs, rubs, or gallops. ABDOMEN: Soft. Bowel sounds normal. No rebound, no guarding, no masses. EXTREMITIES: Show no lower extremity edema. No cyanosis, no clubbing. NEUROLOGIC: Positive for peripheral neuropathy of her lower extremity. LABORATORY DATA AND IMAGING: Labs today, CBC: White blood cell count 7.7, hemoglobin 11.1, stable. Platelet count is 119,000, stable. Coags, 13.1 PT with a PTT of 24.1. Chemistries show normal elec trolytes with a CO2 of 34, BUN 8 with a creatinine of 0.6. Calcium was as high as 11.0. It is down to 10.4 with hydration. Magnesium is 2.4. Phosphorus level was not done. Bilirubin 1.3, elevated l iver enzymes, AST 174, ALT 207 with an alkaline phosphatase of 395. Albumin is 3.6. Urines are for the most part unremarkable with the exception of 2+ protein. Abdominal and pelvic CT scan done on day of admission shows cystic pancreatic neoplasm, predominantly involving the head region. Associ ated biliary and pancreatic duct obstruction. Diffuse hepatic and pulmonary mets. Evidence of right hilar as well as retroperitoneal and periceliac adenopathy. ASSESSMENT: 1. Status post near syncopal episode, likely related to mild volume depletion. The patient was note d to be mildly hypercalcemic. Workup has been sent, but is not back at this point in time. PTH leve l was sent. PTH related protein level was sent. Case discussed with Dr. Rawls. As long as the pat ient remains well hydrated in outpatient setting, no reason she cannot be discharged home. 2. History of hypertension. Blood pressure control is acceptable. The patient has not been taking blood pressure medication at home. 3. History of metastatic pancreatic cancer as noted above. The patient will continue receiving chem otherapy at [facility]. She states that she was in a tria l in [facility], but had to leave the trial. She does have peripheral neuropathy from the chemoth erapy. 4. History of anemia, likely secondary to underlying malignancy. PLAN: 1. IV fluids have been discontinued. The patient will remain well hydrated orally. 2. The patient will follow up blood work at her oncology center in [place]. 3. The patient may continue all outpatient medications upon discharge. 4. Discussed with Dr. Rawls and staff on 2R in detail. Norbert Barrientos MD cc: [id number] TT: 03/04/2017 15:14:58 Confirmation # [id number] Dictation # [id number] en
--- NOTE | 2017-03-05 08:43 | PN ---
DATE: 03/04/2017 ADDENDUM This patient was seen and evaluated earlier today. This is an addendum to the GI progress report dic tated by Stephany Weir APN. The patient's calcium level has come down. The patient's diet will advanced and if the patient is to lerating, the patient will be discharged. CT scan, copies will be given to the patient and also lab report to be followed up at the [facility] where the patient has an appointmen t on Saturday. Thank you very much for allowing us to participate in the care of the patient. Maame Lloyd MD cc: [id number] TT: 03/04/2017 20:16:39 Confirmation # [id number] Dictation # [id number] jn
--- NOTE | 2017-03-06 09:01 | DS ---
A 66-year-old female with history of metastatic pancreatic cancer, admitted to [facility] of a syncopal episode while in [place], was found to have an elevation in her serum calcium. She r eceived IV hydration with improvement in the serum calcium. It was a mild elevation of her parathyro id hormone. She was seen in consultation while in the hospital with Dr. Lloyd of the GI service, Dr. Barrientos and Dr. Betancourt of the renal service. The patient would be discharged to home to be follo wed as an outpatient and to be seen by her oncologist for further care. She was seen by infectious d mauricio and for asymptomatic bacteriuria, no antibiotics were currently needed. Neurology did not fin d any clinical findings, recommended monitoring the patient and she was felt to be clinically s table from a neurological standpoint and he deferred care to primary care and oncology. She was ambu lating without any problems in the hospital and would be followed as an outpatient. LABORATORY DATA ON DISCHARGE: Showed a WBC of 7.7, RBC 3.87, hemoglobin 11.1, hematocrit 33.9, plate let count was 119,000. Her PT was 13.1 with an INR of 1.21, PTT of 24.1. Chemistry showed normal el ectrolytes. Her CO2 was 34, her BUN was 8, her creatinine was 0.6, her calcium was 10.4. Initially, her AST was 178. On discharge, it was 174. Her ALT was 518. It was now 207. Her alkaline phospha tase was 395. Her LDH was 975. Her PTH was 152. The patient's clinical findings were also discussed with her oncologist, Dr. Page, who will be s eeing the patient. Angela Rawls MD cc: [id number] TT: 03/06/2017 09:01:01 en
== END 2017-03-04 18:57 | disposition home or self-care (01) ==
LOC: ED 12:04 → UNDOADMOB 14:00 → ERH 14:00 → INTOOBSV 14:00 → ERH 14:00 → 2RNO 18:59 → UNDODISOB 03-04 18:57
PROVIDERS: ADMIT Internal Medicine; ATTEND Internal Medicine
DX: R55 Syncope and collapse (principal); C25.0 Malignant neoplasm of head of pancreas; G63 Polyneuropathy in diseases classified elsewhere; C78.7 Secondary malignant neoplasm of liver and intrahepatic bile duct; C78.00 Secondary malignant neoplasm of unspecified lung; I10 Essential (primary) hypertension; E83.52 Hypercalcemia; D63.0 Anemia in neoplastic disease; E86.9 Volume depletion, unspecified; R82.71 Bacteriuria
CPT/HCPCS: 36415; 70450; 71010; 74177; 80048; 80053; 81001; 82150; 82550; 83519; 83615; 83690; 83735; 83880; 83970; 84484; 85025; 85610; 85730; 87086; 93005; 96374; 99285; G0378; J2405; J7040; Q9966; Q9967

== ENCOUNTER 2017-03-17 13:12 | Emergency (ER) | payer BC ==
--- NOTE | 2017-03-17 13:28 | ED PDOC ---
Arrival/HPI - General Chief Complaint: Altered Mental Status Time Seen by Provider: 03/17/17 13:25 Historian: Family EM Caveat: Altered Mental Status - Critical Care Critical Care Minutes: 30 minutes - History of Present Illness Narrative History of Present Illness (Text): 03/17/17 13:28 Andria Sharma is a 66 year old female, with a history of metastatic pancreatic cancer, hypertension, and peripheral neuropathy, presents to the emergency department via ambulance for altered mental status. Patient was accompanied by 3 cousins who found the patient unconscious sitting up in a chair in her pajaids. Patient lives alone, and was last seen normal by family yesterday night when they met up for dinner. Family tried to contact her via phone since 9 a.m. today, but was unable to reach her. Therefore, they went to her house to find her unconscious. Family states patient is DNR status. Last chemotherapy for pancreatic CA was 2 weeks prior at [facility]. Patient noted to have tongue biting on right hand side. ROS limited due to unresponsiveness of pt. PMD: Dr. Rawls Severity Level: Severe Context: Home Associated Symptoms (Text): 03/17/17 13:44 Metastatic pancreatic cancer. Last seen normal last evening. Last chemotherapy 2 weeks ago. No seizure history. Unclear if the patient had a seizure and is postictal. Family reports there is a living will and she is a DNR. Cousin's report that she has been complaining of a mild headache for the last several days. Prior to dinner last evening patient had some nausea and vomiting. Past Medical History - Provider Review Nursing Documentation Reviewed: Yes - Infectious Disease Hx of Infectious Diseases: None - Cardiac Hx Cardiac Disorders: Yes Hx Hypertension: Yes - Pulmonary Hx Respiratory Disorders: Yes Hx Asthma: Yes Hx Lung Cancer: Yes - Neurological Hx Neurological Disorder: No - HEENT Hx HEENT Disorder: No - Renal Hx Renal Disorder: No - Endocrine/Metabolic Hx Endocrine Disorders: No - Hematological/Oncological Hx Blood Disorders: Yes Hx Cancer: Yes (lung, pancreas, liver) Hx Chemotherapy: Yes - Integumentary Hx Dermatological Disorder: No - Musculoskeletal/Rheumatological Hx Musculoskeletal Disorders: No - Gastrointestinal Hx Gastrointestinal Disorders: No - Genitourinary/Gynecological Hx Genitourinary Disorders: No - Psychiatric Hx Psychophysiologic Disorder: No Hx Anxiety: No Hx Bipolar Disorder: No Hx Depression: No Hx Emotional Abuse: No Hx Hallucinations: No Hx Panic Disorder: No Hx Post Traumatic Stress Disorder: No Hx Psychosis: No Hx Physical Abuse: No Hx Schizophrenia: No Hx Sexual Abuse: No Hx Substance Use: No - Anesthesia Hx Anesthesia: No Hx Anesthesia Reactions: No Hx Malignant Hyperthermia: No Family/Social History - Physician Review Nursing Documentation Reviewed: Yes Family/Social History: No Known Family HX Smoking Status: Never Smoked Hx Alcohol Use: No Hx Substance Use: No Allergies/Home Meds Allergies/Adverse Reactions: Allergies adhesive Allergy (Verified 03/17/17 13:17) RASH latex Allergy (Verified 03/17/17 13:17) RASH Home Medications: Home Meds Medication Instructions Recorded Confirmed Lipase/Protease/Amylase [Zenpep Dr 1 cap PO BID 03/02/17 03/02/17 25,000 Units Capsule] Lipase/Protease/Amylase [Zenpep Dr 2 cap PO WM 03/02/17 03/02/17 25,000 Units Capsule] Omeprazole Magnesium [Prilosec Otc] 40 mg PO DAILY 03/02/17 03/02/17 Review of Systems - Review of Systems Systems not reviewed;Unavailable: Altered Mental Status (Unresponsive) Physical Exam Vital Signs Temp Pulse Resp BP Pulse Ox 03/17/17 13:46 96.3 F L 03/17/17 13:18 103 H 12 166/65 H 100 Temperature: Afebrile Blood Pressure: Hypertensive Pulse: Tachycardic Respiratory Rate: Normal Appearance: Positive for: Non-Toxic, Other (Chronically ill-appearing) Mental Status: Positive for: other (Unresponsive; Responsive only to painful stimuli, localizes to pain) Finger Stick Blood Glucose: 232 - Systems Exam Head: Present: Atraumatic, Normocephalic Pupils: Present: PERRL Extroacular Muscles: Present: EOMI Conjunctiva: Present: Normal Mouth: Present: Moist Mucous Membranes, Other (tongue biting on right side ) Neck: Present: Normal Range of Motion Respiratory/Chest: Present: Decreased Breath Sounds, Rhonchi (Rhonchi bilaterally ). No: Respiratory Distress, Accessory Muscle Use Cardiovascular: Present: Regular Rate and Rhythm, Normal S1, S2. No: Murmurs Abdomen: Present: Normal Bowel Sounds. No: Tenderness, Distention, Peritoneal Signs Upper Extremity: Present: Normal Inspection. No: Cyanosis, Edema Lower Extremity: Present: Normal Inspection. No: Edema Neurological: Present: CN II-XII Intact, Other (move extremities only to painful stimuli. Sensation and motor exam limited due to AMS ). No: Speech Normal, Motor Func Grossly Intact, Normal Cerebellar Funct Skin: Present: Warm, Dry, Normal Color. No: Rashes Psychiatric: Present: Other (Unresponsive ) Medical Decision Making ED Course and Treatment: 03/17/17 13:41 Impression: A 66 y/o female who presents to the ed for altered mental status. Pt last seen normal last night. Plan: -- CT Head -- Labs, cardiac enzymes -- CXR -- Blood culture -- Park -- Urinalysis Progress Notes: 03/17/17 14:10 EKG shows marked sinus arrhythmia rate approximately 80 with junctional beats and no acute ST or T-wave changes 03/17/17 14:42 Discussed in detail with 3 cousins who are aware of how ill the patient is. They 've called family to come to the hospital from out of state. Dr. Rawls is aware and is coming to the hospital. Patient does have a living will and is a DNR. - Lab Interpretations Lab Results: 03/17/17 13:43 03/17/17 13:43 Lab Results 03/17/17 13:47: Urine Color Dark yellow, Urine Appearance Sl cloudy, Urine pH 6.0, Ur Specific [place] >= 1.030, Urine Protein 100 H, Urine Glucose (UA) 100 H , Urine Ketones 15 H, Urine Blood Small H, Urine Nitrate Negative, Urine Bilirubin Moderate H, Urine Urobilinogen 2.0 H, Ur Leukocyte Esterase Negative, Urine RBC 2 - 5, Urine WBC 0 - 2, Ur Epithelial Cells 0 - 2, Urine Bacteria Few 03/17/17 13:43: Sodium 134, Potassium 3.4 L, Chloride 99, Carbon Dioxide 31, Anion Gap 7 L, BUN 13, Creatinine 0.7, Est GFR ( Amer) > 60, Est GFR (Non -Af Amer) > 60, Random Glucose 296 H, Calcium 11.7 H, Phosphorus 3.7, Magnesium 2.6 H, Total Bilirubin 4.1 H, AST 118 H, ALT Pending, Alkaline Phosphatase 679 H , Lactate Dehydrogenase 895 H, Total Creatine Kinase 40, Troponin I 0.04 D, Total Protein 7.2, Albumin 3.6, Globulin 3.6, Albumin/Globulin Ratio 1.0 L 03/17/17 13:43: WBC 21.5 H D, RBC 4.04, Hgb 11.9 L, Hct 37.2, MCV 92.1, MCH 29.5 , MCHC 32.0, RDW 16.9 H, Plt Count 109 L, MPV 10.0, Neutrophils % (Manual) Pending, Lymphocytes % (Manual) Pending, Monocytes % (Manual) Pending 03/17/17 13:25: pCO2 38, pO2 212.0 H, HCO3 22.5, ABG pH 7.38, ABG Total CO2 23.7 , ABG O2 Saturation 100.1 H, ABG O2 Content 17.9, ABG Base Excess -2.3 L, ABG Hemoglobin 12.9, ABG Carboxyhemoglobin 2.6 H, POC ABG HHb (Measured) -0.1 L, ABG Methemoglobin 1.3, ABG O2 Capacity 17.9, Hgb O2 Saturation 96.2, FiO2 100.0 - RAD Interpretation Radiology Orders: 03/17/17 13:27 HEAD W/O CONTRAST [CT] Stat CHEST PORTABLE [RAD] Stat - Medication Orders Current Medication Orders: Levetiracetam 1,000 mg/ Sodium (Chloride) 110 mls @ 440 mls/hr IV ONCE ONE Stop: 03/17/17 15:00 Discontinued Medications Dexamethasone (Decadron Inj) 10 mg IVP STAT STA Stop: 03/17/17 14:15 - Scribe Statement The provider has reviewed the documentation as recorded by the Nain Kim Provider Attestation: All medical record entries made by the Nain were at my direction and personally dictated by me. I have reviewed the chart and agree that the record accurately reflects my personal performance of the history, physical exam, medical decision making, and the department course for this patient. I have also personally directed, reviewed, and agree with the discharge instructions and disposition. Disposition/Present on Arrival - Present on Arrival Any Indicators Present on Arrival: No History of DVT/PE: No History of Uncontrolled Diabetes: No Urinary Catheter: No History of Decub. Ulcer: No History Surgical Site Infection Following: None - Disposition Have Diagnosis and Disposition been Completed?: Yes Diagnosis: Metastatic cancer, Intracerebral hemorrhage, Altered mental status Disposition: HOSPITALIZED Disposition Time: 14:43 Patient Plan: Admission Patient Problems: Current Active Problems Problem Status Onset Altered mental status Acute Intracerebral hemorrhage Acute Metastatic cancer Acute Condition: CRITICAL
[2017-03-17 13:45] LABS: ARTERIAL BLOOD GAS HCO3 22.5 mmol/L (21-28); ARTERIAL BLOOD GAS HEMOGLOBIN 12.9 g/dL (11.7-17.4); ARTERIAL BLOOD GAS O2 CAPACITY 17.9 mL/dl (16-24); ARTERIAL BLOOD GAS O2 CONTENT 17.9 ML/dl (15-23); ARTERIAL BLOOD GAS O2 SAT 100.1 % (95-98); ARTERIAL BLOOD GAS PCO2 38 mm/Hg (35-45); ARTERIAL BLOOD GAS PH 7.38 (7.35-7.45); ARTERIAL BLOOD GAS TCO2 23.7 mmol.L (22-28)
[2017-03-17 14:00] LABS: ALBUMIN 3.6 g/dL (3.0-4.8); AST/SGOT 118 U/L (15-39); BLOOD UREA NITROGEN 13 mg/dL (7-21); CALCIUM 11.7 mg/dL (8.4-10.5); GFR AFRICAN-AMERICAN > 60; GFR NON-AFRICAN AMERICAN > 60; MAGNESIUM 2.6 mg/dL (1.7-2.2)
[2017-03-17 14:01] VITALS: TEMP 96.3
[2017-03-17 14:05] LABS: HEMOGLOBIN 11.9 gm/dL (12.0-16.0); MEAN CELL VOLUME 92.1 fL (80.0-105.0); MEAN CORPUSCULAR HEMOGLOBIN 29.5 pg (25.0-35.0); PLATELET COUNT 109 10^3/uL (120.0-450.0); RBC 4.04 10^6/uL (3.5-6.1); RED CELL DISTRIBUTION WIDTH 16.9 % (11.5-14.5); WHITE BLOOD COUNT 21.5 10^3/ul (4.5-11.0)
[2017-03-17 14:11] LABS: TROPONIN I 0.04 ng/mL
--- NOTE | 2017-03-17 14:29 | CT ---
PROCEDURE: CT HEAD WITHOUT CONTRAST. HISTORY: ams COMPARISON: 03/02/2017 TECHNIQUE: Axial computed tomography images were obtained through the head/brain without intravenous contrast. Radiation dose: Total exam DLP = mGy-cm. This CT exam was performed using one or more of the following dose reduction techniques: Automated exposure control, adjustment of the mA and/or kV according to patient size, and/or use of iterative reconstruction technique. FINDINGS: HEMORRHAGE: No intracranial hemorrhage. BRAIN: Large intra-axial hemorrhage left frontal parietal region. There is component of subarachnoid hemorrhage and hemorrhage in the ventricles. Effacement of the ipsilateral lateral ventricle, 6 mm midline shift, effacement of basilar cisterns, trapped right lateral ventricle. Findings consistent with uncal herniation. CALVARIUM: Unremarkable. PARANASAL SINUSES: Unremarkable as visualized. No significant inflammatory changes. MASTOID AIR CELLS: Unremarkable as visualized. No inflammatory changes. OTHER FINDINGS: None. IMPRESSION: Massive intracranial hemorrhage with parenchymal, subarachnoid in it intraventricular components described above. COMMUNICATION OF RESULTS Findings discussed with emergency Department attending physician at the time of this interpretation. Study completed 13:48. Verbal results provided 14:14. Results available in the electronic medical record 14:29 March 17, 2017. .
[2017-03-17 14:35] LABS: URINE BILIRUBIN MODERATE (NEGATIVE); URINE BLOOD SMALL (NEGATIVE); URINE GLUCOSE (UA) 100 mg/dL (NEGATIVE); URINE LEUKOCYTE ESTERASE NEGATIVE Leu/uL (NEGATIVE); URINE NITRATE NEGATIVE (NEGATIVE); URINE PROTEIN 100 mg/dL (<30 mg/dL)
[2017-03-17 14:37] LABS: URINE APPEARANCE SL CLOUDY (CLEAR); URINE COLOR DARK YELLOW (YELLOW)
--- NOTE | 2017-03-17 14:39 | RAD ---
HISTORY: Altered mental status. COMPARISON: 03/02/2017. FINDINGS: LUNGS: Widely disseminated pulmonary metastatic disease. PLEURA: No significant pleural effusion identified, no pneumothorax apparent. CARDIOVASCULAR: No radiographic findings to suggest acute or significant cardiovascular disease. Venous access catheter in stable, satisfactory position. OSSEOUS STRUCTURES: No significant abnormalities. VISUALIZED UPPER ABDOMEN: Normal. OTHER FINDINGS: None. IMPRESSION: No acute findings. No significant interval change compared to the prior examination(s).
[2017-03-17] MEDS ORDERED: levETIRAcetam 1,000 MG in Sodium Chloride 0.9% 100 ML IV ONE (14:46)
[2017-03-17 14:48] LABS: URINE BACTERIA FEW (NEG); URINE EPITHELIAL CELLS 0 - 2 /hpf (0-5); URINE WBC 0 - 2 /hpf (0-6)
[2017-03-17 15:02] LABS: ALT/SGPT 103 U/L (7-56)
[2017-03-17 15:14] LABS: INR 1.24 (0.93-1.08); PARTIAL THROMBOPLASTIN TIME 24.7 Seconds (23.7-30.8); PROTHROMBIN TIME 13.4 Seconds (9.9-11.8)
[2017-03-17 16:01] VITALS: BMI 29.9
[2017-03-17 16:27] LABS: BAND 8 % (0-2); LYMPHOCYTE 3 % (22.0-35.0); NEUTROPHIL 74 % (50.0-70.0)
[2017-03-17 16:28] LABS: MONOCYTE 15 % (1.0-6.0); PLATELET ESTIMATE NORMAL (NORMAL)
[2017-03-17 17:19] VITALS: BP 182/77; PULSE 110; RESP 22; O2SAT 95
[2017-03-17] MEDS ORDERED: Dexamethasone 4 mg/1 ml IVP SCH (17:30)
--- NOTE | 2017-03-17 18:30 | CP.PCM.PRO ---
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 [id number]
--- NOTE | 2017-03-17 20:17 | CARD ---
APPROVED REPORT EKG Measurement Heart [id number] ME [id number] <Conclusion> Sinus rhythm with marked sinus arrhythmia with junctional escape complexes Otherwise normal ECG
[2017-03-17] MEDS ORDERED: levETIRAcetam 500mg IVPB 500 MG/100 ML BAG IV SCH (22:00)
== END 2017-03-17 18:10 ==
LOC: ED 13:12 → UNDOADMIN 14:47 → ERH 14:47 → ED 18:10 → UNDODISIN 18:10 → ED 18:20
DX: I61.9 Nontraumatic intracerebral hemorrhage, unspecified (principal); C78.7 Secondary malignant neoplasm of liver and intrahepatic bile duct; C78.00 Secondary malignant neoplasm of unspecified lung; C25.9 Malignant neoplasm of pancreas, unspecified; R41.82 Altered mental status, unspecified; I10 Essential (primary) hypertension; Z66 Do not resuscitate
CPT/HCPCS: 70450; 71010; 80053; 81001; 82550; 82803; 83615; 83735; 84100; 84484; 85025; 85610; 85730; 87040; 93005; 96365; 96375; 99285; J1100; J1953; J3480